=== PATIENT | male | born 1950 | race Caucasian/White ===

== ENCOUNTER 2017-02-28 11:01 | Day surgery (SDC) | payer BC ==
[2017-02-21 11:10] LABS: BASOPHILS 1.1 %; BASOPHILS ABSOLUTE 0.06 10/3/uL (0.0-0.16); EOSINOPHILS ABSOLUTE 0.11 10/3/uL (0.0-0.53); HEMATOCRIT 44.2 % (40.0-51.0); HEMOGLOBIN 15.1 g/dL (13.6-17.8); IMMATURE GRANULOCYTES 0.2 %; IMMATURE GRANULOCYTES ABSOLUTE 0.01 10/3/uL (0.0-0.11); LYMPHOCYTES 24.1 %; LYMPHOCYTES ABSOLUTE 1.31 10/3/uL (0.67-4.30); MEAN CORPUS HGB CONC 34.2 g/dL (32.0-36.0); MEAN CORPUSCULAR HEMOGLOB 29.7 pg (26.0-34.0); MEAN PLATELET VOLUME 11.3 fL (9.2-13.0); MONOCYTES 12.2 %; MONOCYTES ABSOLUTE 0.66 10/3/uL (0.21-1.20); NEUTROPHILS 60.4 %; NEUTROPHILS ABSOLUTE 3.28 10/3/uL (2.02-8.40); PLATELET COUNT 226 10/3/uL (150-400); RBC DISTRIBUTION WIDTH 14.6 % (12.0-16.0); RED CELL COUNT 5.08 10/6/uL (4.7-6.1); WHITE BLOOD CELLS 5.4 10/3/uL (4.5-10.5)
[2017-02-21 11:12] LABS: MANUAL DIFF NO %
[2017-02-21 11:24] LABS: BUN (BLOOD UREA NITROGEN) 29 MG/DL (6-23); CALCIUM, SERUM 9.3 MG/DL (8.5-10.4); CHLORIDE, SERUM 104 MMOL/L (96-112); CO2 (CARBON DIOXIDE) 28 MMOL/L (24-34); CREATININE 1.33 MG/DL (0.70-1.30); GFR AFRICAN AMERICAN 65 ML/MIN (>=60); GFR NON AFRICAN AMERICAN 56 ML/MIN (>=60); GLUCOSE, SERUM 72 MG/DL (60-99); POTASSIUM, SERUM 4.6 MMOL/L (3.5-5.3); SODIUM, SERUM 141 MMOL/L (135-148)
--- NOTE | ~2017-02-28 | OP ---
Record Of Operation [facility] [address] [place]. [address] NAME: STEVE LR : 54 STATUS : [facility]#: [id number] AGE: 66 ADM/REG DATE : 02/28/17 MR#: [id number] REPORT SERV DATE: 02/28/17 DICTATED BY: FRANKI PITT DATE: 02/28/17 REPORT STATUS : Draft TRANSCRIBED BY: MODL DATE: 02/28/17 DATE OF PROCEDURE: 02/28/2017 SERVICE: Otolaryngology. PREOPERATIVE DIAGNOSIS: Acquired nasal deformity. POSTOPERATIVE DIAGNOSIS: Acquired nasal deformity. PROCEDURES: 1. Repair of nasal vestibular stenosis. 2. Septoplasty. 3. Bilateral inferior turbinoplasty. 4. [place] of septal cartilage for use as a graft in the nose. SURGEON: Franki Pitt MD ANESTHESIA: General endotracheal anesthesia. ESTIMATED BLOOD LOSS: 7 mL. COMPLICATIONS: None. SPECIMENS: Nasal bone and cartilage. FINDINGS: The patient had narrowed internal nasal valve insufficiency bilaterally, bilateral inferior turbinate hypertrophy, and deviated septum. STATEMENT OF MEDICAL NECESSITY: This is a 66-year-old male who I have previously done a posterior septoplasty in order to access an infected sphenoid sinus. He completely resolved his symptoms from that and returned to me with complaints of anterior nasal obstruction. On further evaluating him, he did have internal valve insufficiency secondary to mechanical obstruction and some anterior septal deviation that was also contributing, so I recommended the above surgery. STATEMENT OF OPERATION: The patient was brought to the operating room in supine position and transferred to the operating room table. After all pressure points were padded and general endotracheal anesthesia was established, the nose prepared with cocaine soaked pledgets and 1% lidocaine with epinephrine was injected into the skin and soft tissue envelopes in the septal flaps bilaterally. The patient was prepped and draped in the usual fashion. A transcolumellar incision was marked with a surgical marking pen in an inverted V fashion. Bilateral marginal incisions were made followed by the transcolumellar incision. The columellar skin flap was elevated in the submuscular plane using short angled scissors and connected to the marginal incisions. The skin and soft tissue envelope of the nose was elevated completely over the upper and lower lateral cartilages. The anterior septal angle was then developed with a #15 blade and a King elevator. The mucoperichondrium and Record Of Operation [facility] [address] [place]. [address] NAME: STEVE LR : 54 STATUS : [facility]#: [id number] AGE: 66 ADM/REG DATE : 02/28/17 MR#: [id number] REPORT SERV DATE: 02/28/17 DICTATED BY: FRANKI PITT DATE: 02/28/17 REPORT STATUS : Draft TRANSCRIBED BY: MODIzabella DATE: 02/28/17 mucoperiosteum were fully elevated to expose the quadrangular cartilage and portion of the bony cartilaginous junction. The upper lateral cartilages were divided sharply from the dorsal septal cartilage with a 15 blade. The portion of quadrangular cartilage was harvested. The deviated portion was then carved into locomotive operator grafts. The locomotive operator grafts were placed between the upper lateral cartilage and dorsal septal cartilage and secured with 5-0 PDS sutures. Next, a soft tissue envelope was created between the medial crura of the lower lateral cartilage and a cartilaginous dorsal strut graft was placed. With the assistant fitness manager holding the nose and appropriate projection rotation, a transcolumellar incision was performed incorporating both medial crura and the columella strut graft. Once this was completed, a single intradermal stitch was performed on the left intermediate crura just to more proximally symmetry between the sides. The skin and soft tissue envelope was redraped. The patient had excellent symmetry. At this point, both inferior turbinates were injected with 1% lidocaine with epinephrine and reduced with the microdebrider intramurally. They were then outfractured with a Boies elevator. The transcolumellar stitch was then closed with interrupted 6-0 fast absorbing gut sutures. The internal nasal sutures were closed with 4-0 chromic gut sutures. Finally, the patient's face and neck were cleansed with warm saline and dried. Mastisol solution was applied to the dorsum of the nose followed by modified Steri-Strips and an Aquaplast splint. This concluded the case. The patient was turned back over to Anesthesia, where he awoke, was extubated, and transferred to the PACU in a stable condition. CHANDA/RIMMA Franki Pitt MD / [id number] CC: MD Carlos Montero MD
[~2017-02-28 11:01] MED LIST: ACET500CAP PO; ALEVE220 MG PO; PROVHFA; SYMBICORT 160/41 INH INH; SYN112 PO; TESTOST CYP100 MG/ML IM; [UNRECOGNIZED DRUG - OTHER]
== END 2017-02-28 17:50 | disposition home or self-care (01) ==
LOC: SDC 11:01
PROVIDERS: Otolaryngology
PROC: 09TL0ZZ Resection of Nasal Turbinate, Open Approach (ICD-10-PCS; 2017-02-28)
PROC: 09UK07Z Supplement Nasal Mucosa and Soft Tissue with Autologous Tissue Substitute, Open Approach (ICD-10-PCS; principal; 2017-02-28 12:15)
PROC: 09SM0ZZ Reposition Nasal Septum, Open Approach (ICD-10-PCS; 2017-02-28 12:15)
DX: M95.0 Acquired deformity of nose (principal); E03.9 Hypothyroidism, unspecified; J61 Pneumoconiosis due to asbestos and other mineral fibers; J42 Unspecified chronic bronchitis; Z88.2 Allergy status to sulfonamides; Z88.8 Allergy status to other drugs, medicaments and biological substances; Z98.890 Other specified postprocedural states; Z79.899 Other long term (current) drug therapy; Z98.41 Cataract extraction status, right eye; Z98.42 Cataract extraction status, left eye; Z98.1 Arthrodesis status; Z90.49 Acquired absence of other specified parts of digestive tract; Z87.442 Personal history of urinary calculi
CPT/HCPCS: 80048; 85025; 88300; 93005; A9270-GY; J0690; J2250; J2370; J2405; J2710; J3010